=== PATIENT | female | born 1970 | race Asian ===

== ENCOUNTER 2025-02-27 07:18 | Emergency (ER) | payer OTHER ==
[~2025-02-27] VITALS: Ht 149.9 cm; Wt 55.2 kg
[2025-02-27 07:20] VITALS: TEMP 97.8
--- NOTE | 2025-02-27 08:15 | RADIOLOGY REPORT ---
CLINICAL INDICATION: Trauma TECHNIQUE: 3 radiographic views of the right hand were obtained. Comparison: None FINDINGS/IMPRESSION: There is no evidence of acute fracture or dislocation. The visualized joint space is well maintained. The alignment is anatomical. There is no radiopaque foreign body.
[2025-02-27] MEDS: LIDOcaine 1% W/epiNEPHrine 1:100,000 20ml vial SQ ONE (08:24)
[2025-02-27 09:47] VITALS: BP 134/72; PULSE 81; RESP 18; O2SAT 98
--- NOTE | 2025-02-27 09:49 | Physician Documentation ---
History of Present Illness ~ Chief Complaint: Hand pain Stated Complaint: SMASHED FINGER Time Seen by MD: 08:01 HPI Patient is here with a right hand laceration. It is on the palmar surface of her right thumb. 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 This was just prior to arrival. She does not know when her last tetanus immunization was. Denies foreign body denies numbness tingling. Medication Reconciliation Allergies: Coded Allergies: codeine (Verified Allergy, Unknown, 02/27/25) tramadol (Verified Allergy, Unknown, 02/27/25) Physical Exam Vital Signs: Temperature: 97.8, Source: Oral, Heart Rate: 64, Respiratory Rate: 15, BP: 158/81, Pulse Oximetry: 98, Weight: 55.250 Physical Exam General: Awake and Alert, no acute distress. HEENT: Conjunctiva pink, Sclera clear, Mucus Membranes moist. Neck: Supple without masses and tenderness. Resp: Unlabored. Lungs clear to auscultation bilaterally. Heart: Regular Rate and rhythm, normal S1 and S2 without murmur, rub or gallop. Abdomen: Soft and non tender no organomegaly Extremities: No cyanosis,clubbing or edema. The palmar surface of her right thumb just past the IP crease there is a 2 cm horizontal laceration with subcutaneous tissue exposed. No tendon injury normal flexion-extension normal sensation distally. Skin: Warm and Dry. Neuro: GCS 15; no focal deficits Progress Results/Orders Results/Orders Orders - DANYELLE KING MD, Complete (3vw Min) (02/27/25 07:23) Completed Orders - DANYELLE KING MD, Complete (3vw Min) (02/27/25 07:23) Tetanus/Pertuss/Diph Acell/Pf (Boostrix (02/27/25 08:10) Lidocaine 1% W/Epi 1:100,000 (Xylocaine (02/27/25 08:10) Vital Signs 02/27/25 07:20 Temp 97.8 Pulse 64 Resp 15 B/P (MAP) 158/81 Pulse Ox 98 Medical Decision Making Findings Procedure note digital block: I used about 5 cc of 1% lidocaine with epinephrine injected at the base of the thumb as a ring block. This provided complete anesthesia. Procedure note laceration repair: Patient he had wound was anesthetized with a ring block. It was irrigated with saline by the nursing staff. His skin was prepped with chlorhexidine and draped in usual sterile manner and closed using 4-0 interrupted nylon sutures. Patient is here with a thumb laceration from a crush injury. X-ray was negative. Wound was repaired she was discharged sutures out in seven days her tetanus was also updated. Departure Disposition: HOME / SELF CARE / HOMELESS Impression: Primary Impression: Thumb laceration Qualified Codes: S61.011A - Laceration without foreign body of right thumb without damage to nail, initial encounter Condition: Stable Discharge Instructions: Laceration Care, Adult Additional Instructions: Sutures out in one week Referrals: NO PRIMARY CARE PROVIDER (PCP) Education Educated: Patient Educated regarding: diagnosis, treatment, prognosis, need for follow up Signature Scribe Signature: no scribe Attestation: no scribe DANYELLE KING MD Feb 27, 2025 09:49
[2025-02-27] MEDS: TETanus/Pertussis (Acell)/Diphther VAC/PF (Tdap-Adult) 0.5ml syringe IMVAC ONE (09:59)
== END 2025-02-27 10:34 | disposition home or self-care (01) ==
LOC: ER 07:19
DX: S61.011A Laceration without foreign body of right thumb without damage to nail, initial encounter (principal); Z88.5 Allergy status to narcotic agent; X58.XXXA Exposure to other specified factors, initial encounter; Y93.89 Activity, other specified; Y92.89 Other specified places as the place of occurrence of the external cause; Y99.8 Other external cause status
CPT/HCPCS: 12001; 73130; 90471; 90715; 99284; J7030; A6449

== ENCOUNTER 2025-03-02 09:22 | Emergency (ER) | payer OTHER ==
[~2025-03-02] VITALS: Ht 147.3 cm; Wt 59.8 kg
[2025-03-02 09:27] VITALS: BP 162/82; PULSE 61; RESP 16; O2SAT 96
--- NOTE | 2025-03-02 10:00 | Physician Documentation ---
History of Present Illness ~ Chief Complaint: Wound Re-Check Stated Complaint: FINGER RECHECK Time Seen by MD: 09:49 OK to notify your PCP?: Yes Source: patient Mode of Arrival: POV Exam Limitations: no limitations HPI 54-year-old female who is right-handed here with right thumb pain which was treated here four days ago after she had a crush injury to her thumb that occurred at work. Her thumb sustained a laceration which was repaired here but per the notes there was no concern for a tendon injury. Patient states she is concerned that she may have an infection due to her pain and is requesting an antibiotic. She states the pain is sharp and it feels like a bee sting. Pain is making it difficult for her to sleep at night. She has not noticed any redness of her thumb but has had increased swelling which is why she is concerned about infection. Tetanus within 5 years: No Medication Reconciliation Allergies: Coded Allergies: codeine (Verified Allergy, Unknown, 02/27/25) tramadol (Verified Allergy, Unknown, 02/27/25) Past Medical History Past Medical History: No Pertinent History Review of Systems All Other Systems at this time: Reviewed and Negative Physical Exam Vital Signs: Temperature: 99.2, Source: Oral, Heart Rate: 61, Respiratory Rate: 16, BP: 162/82, Pulse Oximetry: 96, Weight: 59.800 Oxygen Flow Rate: 0 Physical Exam General Appearance: Alert, WD/WN. NAD. HEENT: NCAT, PERRL, EOMI. Neck: Supple, trachea midline. Lungs: Breathing unlabored Skin: Right thumb laceration on the palmar surface that is extends about half way around the thumb, sutures in place, surrounding the sutures there is some mild erythema which appears more like irritation than infection, no drainage, thumb is edematous but not erythematous, patient has decreased range of motion of her thumb due to pain. Cap refill at tip of them is less than 2 seconds. Normal inspection of the rest of the hand. Neurological: Alert and oriented x4, normal gait. Psychiatric: Affect congruent with mood. Progress Results/Orders Results/Orders Vital Signs 03/02/25 09:27 Temp 99.2 Pulse 61 Resp 16 B/P (MAP) 162/82 Pulse Ox 96 O2 Flow Rate 0 Medical Decision Making Finger Diff Dx:Considerations: Include: Abrasion, Cellulitis, Contusion, Dislocation, Fracture, Hematoma, Laceration, Neurovascular injury, Open fracture, Subungual hematoma Departure Time of Disposition: 09:57 Disposition: 01 HOME / SELF CARE / HOMELESS Impression: Primary Impression: Pain of right thumb Additional Impression: Thumb laceration Qualified Codes: S61.011A - Laceration without foreign body of right thumb without damage to nail, initial encounter Condition: Stable Discharge Instructions: Wound Care, Adult Additional Instructions: I have a low suspicion for an infection but I am going to give you a prescription for antibiotics due to the mild redness around the sutures but this redness to me appears more to be irritation than actual infection. If you have increasing redness, fever or increasing pain return to the ER I also sent some pain medication to your pharmacy as well Referrals: NO PRIMARY CARE PROVIDER (PCP) Prescriptions Hydrocodone Bit/Acetaminophen 5/325 MG ([place] 5/325 MG) 5 Mg/325 Mg Tablet 1 TAB PO Q8H PRN for moderate or severe pain, #10 TAB dx: thumb pain s/p acute injury M79.646 Prov: PEBBLES CHERY 03/02/25 Cephalexin*Monohydrate* (Keflex*) 500 Mg Capsule 1 CAP PO Q6H for 7 Days, #28 CAP Prov: PEBBLES CHERY 03/02/25 Education Educated: Patient Educated regarding: diagnosis, treatment, need for follow up Signature Scribe Signature: roe Attestation: PEBBLES Savage Mar 02, 2025 10:00
[2025-03-02] MEDS ORDERED: CEPH-585 PO (10:01)
[2025-03-02] MEDS ORDERED: HYDR-3965 PO (10:01)
[2025-03-02 10:15] VITALS: TEMP 99.2
== END 2025-03-02 10:19 | disposition home or self-care (01) ==
LOC: ER 09:22
DX: S61.011A Laceration without foreign body of right thumb without damage to nail, initial encounter (principal); Z88.5 Allergy status to narcotic agent; W23.0XXA Caught, crushed, jammed, or pinched between moving objects, initial encounter; Y93.89 Activity, other specified; Y92.89 Other specified places as the place of occurrence of the external cause; Y99.8 Other external cause status
CPT/HCPCS: 99283

== ENCOUNTER 2025-03-04 18:11 | Emergency (ER) | payer OTHER ==
[~2025-03-04] VITALS: Ht 157.5 cm; Wt 61.4 kg
[~2025-03-04 18:11] MED LIST: CEPH-585 PO; HYDR-3965 PO
[2025-03-04] MEDS: ondansetron 4mg rapidly disintigrating tab PO ONE (19:34)
--- NOTE | 2025-03-04 19:38 | Physician Documentation ---
HPI ~ General Chief Complaint: Vomiting Stated Complaint: N/V Time Seen by MD: 18:55 OK to notify your PCP?: Yes Source: patient Mode of Arrival: POV Exam Limitations: no limitations History of Present Illness HPI Comments 54-year-old female presents with episodes of vomiting today after starting Keflex yesterday. She states she has had 2 doses of Keflex and after the 1st dose did not feel very well and after the 2nd dose started vomiting. She states that she has been vomiting all day today and her last dose was this morning. She was seen here for an infection of her right thumb which is bandaged up. Medication Reconciliation Allergies: Coded Allergies: codeine (Verified Allergy, Unknown, 03/04/25) tramadol (Verified Allergy, Unknown, 03/04/25) cephalexin (Unverified Adverse Reaction, Intermediate, vomiting, 03/04/25) Scheduled Cephalexin*Monohydrate* (Keflex*), 1 CAP PO Q6H Doxycycline Hyclate (Doxycycline Hyclate), 1 CAP PO Q12H Scheduled PRN Hydrocodone Bit/Acetaminophen 5/325 MG ([place] 5/325 MG), 1 TAB PO Q8H PRN for moderate or severe pain Past Medical History Past Medical History: No Pertinent History Review of Systems All Other Systems at this time: Reviewed and Negative Physical Exam Physical Exam Vital Signs: RN Vital Signs have been reviewed: Yes, Temperature: 97.9, Source: Temporal, Heart Rate: 69, Respiratory Rate: 16, BP: 159/72, Pulse Oximetry: 99, Weight: 61.360 Oxygen Flow Rate: 0 Pulse Oximetry Reflects: adequate oxygenation Physical Exam General: Alert, no apparent distress. HEENT: PERRL, EOMI, no injection, moist mucous membranes. Neck: Full range of motion. Respiratory: Lungs clear, no respiratory distress. Chest: No accessory muscle use. Cardiovascular: Regular rate and rhythm, no murmurs. Gastrointestinal: Soft, nontender, nondistended. Bowels sounds present. Extremities: Normal range of motion, no deformity. Neurologic: Oriented x4. Psychiatric: Normal mood and affect. Skin: Normal color, warm and dry. No edema, no ecchymosis. Right thumb laceration on the palmar surface that is extends about half way around the thumb, sutures in place, surrounding the sutures there is some mild erythema which appears more like irritation than infection, no drainage, thumb is edematous but not erythematous, patient has decreased range of motion of her thumb due to pain. Cap refill at tip of them is less than 2 seconds. Normal inspection of the rest of the hand. Progress Results/Orders Reviewed/noted all lab results: Yes Results/Orders Orders - PHYLLIS CORTES Doxycycline 100mg Capsule (Vibramycin 10 (03/04/25 19:28) Urinalysis, Cult If Indicated (03/04/25 19:34) Hcg, Ur Ql (03/04/25 19:34) Completed Orders - PHYLLIS CORTES LOADER OPERATOR Ondansetron Disint. Tablet (Zofran Odt T (03/04/25 19:30) Cbc/Diff (03/04/25 19:34) Lipase (03/04/25 19:34) CMP (03/04/25 19:34) Potassium Cl Sr Tablet (K-Dur Tablet) (03/04/25 21:13) Medications Received in ER Medications (Trade) Dose Ordered Sig/Carolyn Route PRN Reason Start Time Stop Time Status Last Admin Dose Admin (Zofran ODT tablet) 4 mg ONCE ONCE PO 03/04/25 19:30 03/04/25 19:32 DC 03/04/25 19:34 4 MG (VIBRAMYCIN 100mg capsule) 100 mg ONCE STAT PO 03/04/25 19:28 03/04/25 19:32 DC 03/04/25 19:58 100 MG (K-DUR tablet) 20 meq ONCE STAT PO 03/04/25 21:13 03/04/25 21:14 DC 03/04/25 21:19 20 MEQ Vital Signs 03/04/25 18:12 Temp 97.9 Pulse 69 Resp 16 B/P (MAP) 159/72 Pulse Ox 99 O2 Flow Rate 0 Laboratory Tests Test 03/04/25 19:58 White Blood Count 7.3 Red Blood Count 4.74 Hemoglobin 13.9 Hematocrit 41.4 Mean Corpuscular Volume 87.3 Mean Corpuscular Hemoglobin 29.3 Mean Corpuscular Hemoglobin Concent 33.6 Red Cell Distribution Width 13.0 Platelet Count 233 Mean Platelet Volume 9.1 Neutrophils (%) (Auto) 71.3 Lymphocytes (%) (Auto) 21.3 Monocytes (%) (Auto) 5.4 Eosinophils (%) (Auto) 1.6 Basophils (%) (Auto) 0.4 Neutrophils # (Auto) 5.2 Lymphocytes # (Auto) 1.6 Monocytes # (Auto) 0.4 Eosinophils # (Auto) 0.1 Basophils # (Auto) 0.0 CBC Comment Sodium Level 145 Potassium Level 3.3 L Chloride Level 107 Carbon Dioxide Level 30.9 Anion Gap 7 L Blood Urea Nitrogen 12 Creatinine 0.66 Estimated GFR/1.73 m2 > 90 BUN/Creatinine Ratio 18.2 Glucose Level 97 Calcium Level 8.5 Total Bilirubin 0.5 Aspartate Amino Transf (AST/SGOT) 14 Alanine Aminotransferase (ALT/SGPT) 19 Alkaline Phosphatase 97 Total Protein 7.1 Albumin 3.3 L Globulin 3.8 Albumin/Globulin Ratio 0.9 L Lipase 104 H Chemistry Comments Medical Decision Making Findings 54-year-old female presents with vomiting today after taking her 2nd dose of Keflex. She felt weird after taking the 1st dose but started vomiting after the 2nd dose for her thumb laceration done here a couple of days ago. She is requesting a new antibiotic so she was given doxycycline here and a prescription sent to go. She is concerned about dehydration as she has not been able to keep any water down today. While in the department due to the vomiting, I did some lab work to rule out dehydration, and her potassium was 3.3 and lipase was slightly elevated the all other labs were unremarkable. I gave her 20 mEq potassium replacement orally, Zofran which helped with her nausea. On exam her abdomen is soft, nondistended and nontender with normal bowel sounds throughout. He should follow up with the primary care provider in the next 3 days and return back here for any new or worsening symptoms. She should avoid taking Keflex in the future as this was likely the cause of her vomiting. Additional Comment Pancreatitis, gastroenteritis, diverticulosis, appendicitis, gallstones. Departure Disposition: 01 HOME / SELF CARE / HOMELESS Impression: Primary Impression: Antibiotic reaction Additional Impressions: Vomiting Pain of right thumb Thumb laceration Condition: Stable Discharge Instructions: Nausea and Vomiting, Adult Additional Instructions: Take all antibiotics as prescribed. Please refrain from taking Keflex in the future as this is likely the cause of her vomiting. Your potassium with a little low which we replaced while here. Follow up with her primary care provider in the next 3 days and return back here for any new or worsening symptoms. Departure Forms: Excuse form Work or School Excused From: Work Excuse beginning now through the following date: Mar 08, 2025 Referrals: NO PRIMARY CARE PROVIDER (PCP) Prescriptions Doxycycline Hyclate (Doxycycline Hyclate) 100 Mg Capsule 1 CAP PO Q12H for 10 Days, #20 CAP Prov: PHYLLIS CORTES 03/04/25 Education Educated: Patient Educated regarding: diagnosis, treatment, prognosis, need for follow up Additional Comment Medical Screen Exam This patient recieved a medical screening examination. After reviewing the individual's medical complaints with presenting symptoms and performing an appropriate physical examination, it was determined that no immediate life- threatening emergency medical condition is present. This individual is also not a women having contractions. Signature Scribe Signature: . Attestation: Scribed for Phyllis Cortes by Phyllis Pereyra NP . 03/04/25 21:16 PHYLLIS CORTES Mar 04, 2025 19:38
[2025-03-04] MEDS: DOXYCYCLINE 100MG CAPSULE PO STA (19:58)
[2025-03-04 20:39] LABS: BASOPHILS % (AUTO) 0.4 % (0-1); EOSINOPHILS # (AUTO) 0.1 X10'3 (0-0.9); EOSINOPHILS % (AUTO) 1.6 % (0-6); HEMATOCRIT 41.4 % (35.0-45.0); HEMOGLOBIN 13.9 g/dl (12.0-16.0); LYMPHOCYTES # (AUTO) 1.6 X10'3 (1.1-4.8); LYMPHOCYTES % (AUTO) 21.3 % (21-51); MEAN CORPUSCULAR HEMOGLOBIN 29.3 PG (27.0-31.0); MEAN CORPUSCULAR HGB CONC 33.6 g/dL (33.0-36.5); MEAN CORPUSCULAR VOLUME 87.3 FL (78-98); MEAN PLATELET VOLUME 9.1 FL (7.4-10.4); MONOCYTES # (AUTO) 0.4 X10'3 (0-0.9); MONOCYTES % (AUTO) 5.4 % (2-12); NEUTROPHILS # (AUTO) 5.2 X10'3 (1.8-7.7); NEUTROPHILS % (AUTO) 71.3 % (42-75); PLATELET COUNT 233 X10'3 (140-440); RED BLOOD COUNT 4.74 X10'6 (4.20-5.60); WHITE BLOOD COUNT 7.3 X10'3 (4.5-11.0)
[2025-03-04 21:00] LABS: ALANINE AMINOTRANSFERASE 19 U/L (12-78); ALBUMIN 3.3 G/DL (3.4-5.0); ALBUMIN/GLOBULIN RATIO 0.9 (1.1-1.5); ALKALINE PHOSPHATASE 97 IU/L (46-116); ANION GAP 7 (8-16); ASPARTATE AMINO TRANSFERASE 14 U/L (10-37); BILIRUBIN,TOTAL 0.5 MG/DL (0.1-1.0); BLOOD UREA NITROGEN 12 MG/DL (7-18); BUN/CREATININE RATIO 18.2 (10.0-20.0); CALCIUM 8.5 MG/DL (8.5-10.1); CHLORIDE 107 MMOL/L (99-107); CREATININE 0.66 MG/DL (0.40-0.90); GLUCOSE 97 MG/DL (70-104); LIPASE 104 U/L (16-77); POTASSIUM 3.3 MMOL/L (3.5-5.1); SODIUM 145 MMOL/L (135-145); TOTAL CARBON DIOXIDE 30.9 MMOL/L (24-32); TOTAL PROTEIN 7.1 G/DL (6.4-8.2); eCRCL 75 ML/MIN; eGFR > 90 ML/MIN
[2025-03-04] MEDS ORDERED: DOXY-224 PO (21:10)
[2025-03-04] MEDS: potassium Cl 20 mEq SR tablet PO STA (21:19)
[2025-03-04 21:26] VITALS: BP 148/82; PULSE 72; RESP 16; TEMP 98.6; O2SAT 99
== END 2025-03-04 21:27 | disposition home or self-care (01) ==
LOC: ER 18:11
DX: S61.011A Laceration without foreign body of right thumb without damage to nail, initial encounter (principal); R11.2 Nausea with vomiting, unspecified; T36.95XA Adverse effect of unspecified systemic antibiotic, initial encounter; Z88.1 Allergy status to other antibiotic agents; Z88.5 Allergy status to narcotic agent; X58.XXXA Exposure to other specified factors, initial encounter; Y93.89 Activity, other specified; Y92.89 Other specified places as the place of occurrence of the external cause; Y99.8 Other external cause status
CPT/HCPCS: 36415; 80053; 83690; 85025; 99284

== ENCOUNTER 2025-03-06 14:28 | Emergency (ER) | payer OTHER ==
[~2025-03-06] VITALS: Ht 147.3 cm; Wt 55.4 kg
[~2025-03-06 14:28] MED LIST changes: -CEPH-585 PO; +DOXY-224 PO
[2025-03-06 14:31] VITALS: TEMP 97.6
[2025-03-06 16:00] VITALS: BP 155/70; PULSE 65; RESP 15; O2SAT 98
--- NOTE | 2025-03-06 16:19 | Physician Documentation ---
History of Present Illness ~ Chief Complaint: Suture Removal Stated Complaint: SUTURE REMOVAL Time Seen by MD: 14:37 HPI Patient is seen today for suture removal from flexor surface of right thumb at level of proximal phalanx. Patient states date of injury was one week ago. Patient is also complaining of pain of her right shoulder. Patient denies any fevers or chills and has no other concern or complaint at this time. Tetanus within 5 years: No Medication Reconciliation Allergies: Coded Allergies: codeine (Verified Allergy, Unknown, 03/04/25) tramadol (Verified Allergy, Unknown, 03/04/25) cephalexin (Unverified Adverse Reaction, Intermediate, vomiting, 03/04/25) Scheduled Doxycycline Hyclate (Doxycycline Hyclate), 1 CAP PO Q12H Scheduled PRN Hydrocodone Bit/Acetaminophen 5/325 MG ([place] 5/325 MG), 1 TAB PO Q8H PRN for moderate or severe pain Discontinued Medications Cephalexin*Monohydrate* (Keflex*), 1 CAP PO Q6H Past Medical History Past Medical History: No Pertinent History Review of Systems Constitutional: Denies: chills, fever, weakness Eyes: Denies: pain, blurred vision ENT: Denies: ear pain, nose pain, throat pain, mouth pain Respiratory: Denies: cough, shortness of breath Cardiovascular: Denies: chest pain, palpitations Gastrointestinal: Denies: abdominal pain, nausea, vomiting Genitourinary: Denies: burning, dysuria Female Genitalia: Denies: vaginal discharge, pelvic pain Neurological: Denies: headache, dizziness Musculoskeletal: Denies: pain, swelling Integumentary: Denies: rash, lesions Allergic/Immunologic: Denies: hives, itching Hematologic/Lymphatic: Denies: no symptoms reported Psychiatric: Denies: depression, anxiety Physical Exam Vital Signs: Temperature: 97.6, Source: Temporal, Heart Rate: 65, Respiratory Rate: 15, BP: 155/70, Pulse Oximetry: 98, Weight: 55.400 Physical Exam General: Awake and Alert, no acute distress. HEENT: Conjunctiva pink, Sclera clear, Mucus Membranes moist. Neck: Supple without masses and tenderness. Resp: Unlabored. Lungs clear to auscultation bilaterally. Heart: Regular Rate and rhythm, normal S1 and S2 without murmur, rub or gallop. Musculoskeletal: Patient on exam is neurovascularly intact distally of the right thumb. Flexor tendon and active flexion at the IP joint of the right thumb is intact however exam is difficult due to pain patient is experiencing. I was able to palpate flexor tendon on activation of flexion of the right thumb. Laceration appears to be well healed at palmar surface of right thumb. I do not appreciate any sign of infection or erythema or purulent drainage or induration. Extremities: No cyanosis,clubbing or edema. Skin: Warm and Dry. Progress Results/Orders Results/Orders Orders - DE OBRIEN PAC Shoulder, Complete (Min 2 Vws) (03/06/25 16:25) Completed Orders - DE OBRIEN PAC Shoulder, Complete (Min 2 Vws) (03/06/25 16:25) Vital Signs 03/06/25 03/06/25 14:31 16:00 Temp 97.6 Pulse 58 65 Resp 15 15 B/P (MAP) 150/78 155/70 (98) Pulse Ox 99 98 EKG/XRAY/CT/US/VASC/MRI Bone/Soft Tissue X-Ray (Ext.) : Additional Comment X-ray of right shoulder interpreted by myself today shows no sign of acute fracture, bones in anatomic alignment, no osteolytic or blastic lesions. DIAGNOSTIC RADIOLOGY Patient: BILL FU Medical Record: [id number] [facility] : 1970, Age: 54 Sex: Female Location: ER Patient Status: [facility] ER Service Date/Time: 03/06/251624 Ordering Physician: DE OBRIEN PAC Exam: SHOULDER, COMPLETE (MIN 2 VWS) CLINICAL INDICATION: right shoulder pain TECHNIQUE: 3 radiographic views of the right shoulder were obtained. Comparison: None FINDINGS/IMPRESSION: There is no evidence of acute fracture or dislocation. The visualized joint space is well maintained. The alignment is anatomical. There is no radiopaque foreign body. Right lower lung zone atelectasis /pneumonia. Midline sternotomy wires are noted. Electronically Signed by:CARMELA FONSECA DO Date & Time: 03/06/251653 Dictated by: CARMELA FONSECA DO Dictation date and time: 03/06/251653 Primary Care Provider: NO PRIMARY CARE PROVIDER cc: DE OBRIEN PAC ~ Medical Decision Making Findings Patient is seen today for suture removal from flexor surface of right thumb at level of proximal phalanx. Patient states date of injury was one week ago. Patient is also complaining of pain of her right shoulder. Patient denies any fevers or chills and has no other concern or complaint at this time. Sutures were removed from right thumb. Patient will follow up with primary care for referral to physical therapy for further eval and treatment. Patient will advance activity level as tolerated. X-ray of right shoulder shows no sign of acute fracture. Patient will follow up with managed care specialist for further eval and treatment of right shoulder pain in 2-4 weeks if no better as needed sooner. Return to ED with any worsening, concerning or changing symptoms. Patient will be given note for work for one more week to have no work with right upper extremity for seven more days. She will need re-evaluation after that. Departure Disposition: 01 HOME / SELF CARE / HOMELESS Impression: Primary Impression: Right shoulder pain Qualified Codes: M25.511 - Pain in right shoulder Additional Impression: Visit for suture removal Condition: Improved Discharge Instructions: Suture Removal, Care After Additional Instructions: Sutures were removed from right thumb. Patient will follow up with primary care for referral to physical therapy for further eval and treatment. Patient will advance activity level as tolerated. X-ray of right shoulder shows no sign of acute fracture. Patient will follow up with managed care specialist for further eval and treatment of right shoulder pain in 2-4 weeks if no better as needed sooner. Return to ED with any worsening, concerning or changing symptoms. Patient will be given note for work for one more week to have no work with right upper extremity for seven more days. She will need re-evaluation after that. Departure Forms: Excuse form Work or School Excused From: Work Excuse beginning now through the following date: Mar 13, 2025 Referrals: NO PRIMARY CARE PROVIDER (PCP) Signature Scribe Signature: No scribe Attestation: No scribe DE OBRIEN PAC Mar 06, 2025 16:19
--- NOTE | 2025-03-06 16:57 | RADIOLOGY REPORT ---
CLINICAL INDICATION: right shoulder pain TECHNIQUE: 3 radiographic views of the right shoulder were obtained. Comparison: None FINDINGS/IMPRESSION: There is no evidence of acute fracture or dislocation. The visualized joint space is well maintained. The alignment is anatomical. There is no radiopaque foreign body. Right lower lung zone atelectasis /pneumonia. Midline sternotomy wires are noted.
[2025-03-06] MEDS: ondansetron 4mg rapidly disintigrating tab PO ONE (18:06)
== END 2025-03-06 18:07 | disposition home or self-care (01) ==
LOC: ER 14:28
DX: S61.011D Laceration without foreign body of right thumb without damage to nail, subsequent encounter (principal); M25.511 Pain in right shoulder; Z88.5 Allergy status to narcotic agent; Z88.1 Allergy status to other antibiotic agents; X58.XXXD Exposure to other specified factors, subsequent encounter
CPT/HCPCS: 73030; 99283; J7030; A6449

== ENCOUNTER 2025-05-04 11:51 | Outpatient (CLI) | payer OTHER ==
--- NOTE | 2025-05-04 13:07 | RADIOLOGY REPORT ---
CLINICAL INDICATION: PAIN IN RIGHT UPPER ARM,PAIN IN RIGHT FINGER(S) TECHNIQUE: Noncontrast CT of the right forearm was performed. Sagittal and coronal reformatted images are provided. COMPARISON: COMPLETE (3VW MIN) on DOS: 02/27/25 CT Dose: CTDI volume is 3.6 mGy. Dose-length product is 169 mGy*cm FINDINGS: No fracture or dislocation. Joint spaces are maintained. Soft tissues are unremarkable. IMPRESSION: 1. No acute bone or soft tissue abnormality in the right forearm. All CT scans at this medical facility are performed using dose modulation techniques as appropriate t o a performed exam including the following: Automated exposure control was utilized; adjustment of th e MA and/or KV according to patient size; and use of iterative reconstruction technique.
== END 2025-05-04 23:59 | disposition home or self-care (01) ==
LOC: RAD 11:51
PROVIDERS: ATTEND Surgery
DX: S67.01XA Crushing injury of right thumb, initial encounter (principal); M79.621 Pain in right upper arm; M79.644 Pain in right finger(s); X58.XXXA Exposure to other specified factors, initial encounter; Y93.89 Activity, other specified; Y92.89 Other specified places as the place of occurrence of the external cause; Y99.8 Other external cause status
CPT/HCPCS: 73200

== ENCOUNTER 2025-06-14 08:32 | Outpatient (CLI) | payer OTHER ==
--- NOTE | 2025-06-14 09:58 | RADIOLOGY REPORT ---
CLINICAL INFORMATION: Pain in right shoulder. TECHNIQUE: Multisequence multiplanar MRI images of the right shoulder were obtained without contrast. COMPARISON: DI SHOULDER, COMPLETE (MIN 2 VWS) on DOS: 03/06/25 FINDINGS: Acromioclavicular joint: There is mild acromioclavicular hypertrophy and mild edema. There is Type 2 acromion. Small amount of fluid in the subacromial / subdeltoid bursa. Rotator cuff tendons: Mild tendinosis of the distal supraspinatus and infraspinatus tendons. No tear. Subscapularis and teres minor tendons are intact. Biceps tendon: Mild tendinosis of the proximal long head biceps tendon along its intra-articular course. No tear visualized. Mild tenosynovitis at the level of the bicipital groove. Labrum: No labral tear identified. Bones: No fracture or focal marrow contusion. Muscles: Normal muscle bulk. No atrophy. Other: No other significant findings. IMPRESSION: 1. Mild tendinosis of the proximal long head biceps tendon with mild tenosynovitis. 2. Mild rotator cuff tendinosis without evidence of tear. 3. Mild acromioclavicular hypertrophy with mild subacromial / subdeltoid bursitis.
== END 2025-06-14 23:59 | disposition home or self-care (01) ==
LOC: MRI02 08:32
PROVIDERS: ATTEND Student in an Organized Health Care Education/Training Program
DX: M65.811 Other synovitis and tenosynovitis, right shoulder (principal); M25.411 Effusion, right shoulder; M25.811 Other specified joint disorders, right shoulder; M25.511 Pain in right shoulder
CPT/HCPCS: 73221